=== PATIENT | female | born 2000 | race Caucasian/White ===

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

== ENCOUNTER 2020-02-23 06:29 | Outpatient (CLI) | payer BC ==
[2020-02-23 15:13] LABS: #Monocytes 0.4 10x3/uL (0.0-1.1); #Neutrophils 4.9 10x3/uL (1.5-8.4); %Basophils 0.3 % (0.0-2.0); %Eosinophils 0.3 % (0.0-6.0); %Lymphocytes 31.3 % (18.0-47.0); %Monocytes 4.7 % (0.0-10.0); %Neutrophils 63.3 % (40.0-75.0); Hemoglobin 15.6 g/dL (12.0-16.0); Mean Corpuscular HGB CONC 33.5 G/DL (32.0-36.0); Mean Corpuscular Hemoglobin 29.4 PG (27.0-33.0); Mean Corpuscular Volume 87.9 fl (80.0-100.0); Mean Platelet Volume 9.8 fl (7.4-10.4); Platelet Count 307 10x3/uL (130-400); RBC Distribution Width 11.9 % (11.5-14.5); White Blood Cell (WBC) Count 7.7 10x3/uL (4.5-11.0)
[2020-02-23 15:43] LABS: Anion Gap 15 mmol/L (10-20); BUN (Urea Nitrogen) 9 mg/dL (7.0-18.7); Calc. Creatinine Clearance 0 mL/min (70-130); Calcium 9.8 mg/dL (7.8-10.44); Carbon Dioxide 26 mmol/L (22-29); Chloride 104 mmol/L (98-107); Glucose 65 mg/dL (70-105); Potassium 4.3 mmol/L (3.5-5.1); Sodium 141 mmol/L (136-145)
[2020-02-24 02:10] LABS: SARS-CoV-2 MS2 Positive; SARS-CoV-2 N Gene Negative; SARS-CoV-2 S Gene Negative; SARS-CoV-2 by NAA Not Detected (NotDetected); SARS-CoV-2 orf1ab Negative
== END 2020-02-23 06:30 | disposition home or self-care (01) ==
LOC: LABBT 06:29
PROVIDERS: ATTEND Specialist
DX: Z01.812 Encounter for preprocedural laboratory examination (principal); Z20.828 Contact with and (suspected) exposure to other viral communicable diseases; L05.91 Pilonidal cyst without abscess
CPT/HCPCS: 80048; 85025; 87635; U0003

== ENCOUNTER 2020-02-26 11:58 | Day surgery (SDC) | payer BC ==
[2020-02-25 09:39] VITALS: BMI 23.1
[~2020-02-26 11:58] MED LIST changes: +Dexamethasone 20 MG/5 ML VIAL ONE; +Glycopyrrolate 0.2 MG/ML 5 ML SYRINGE ONE; -Iopamidol 370 76% 100 ML VIAL ONE; +Ketorolac Tromethamine 30 MG/ML VIAL ONE; +Ondansetron PF 4 MG/2 ML Vial ONE; +PROPOFOL 200 MG/20 ML VIAL ONE; +Rocuronium Bromide 10 MG/ML (10ML VIAL) ONE; +diphenhydrAMINE 50 MG/ML VIAL ONE
[2020-02-26] MEDS ORDERED: Acetaminophen 500 MG TAB ONE (12:33)
[2020-02-26] MEDS ORDERED: Ketorolac Tromethamine 30 MG/ML VIAL ONE (12:33)
[2020-02-26] MEDS ORDERED: Midazolam HCl 2 mg/2 ml Vial ONE ×2 (14:51→17:41)
[2020-02-26] MEDS ORDERED: Lidocaine 1% w/Epinephrine 1:100K 20 ML VIAL ONE (17:07)
[2020-02-26] MEDS ORDERED: Methylene Blue 50 MG/10 ML AMPUL ONE (17:07)
[2020-02-26] MEDS ORDERED: Bacitracin Zinc Ointment 30 gm TUBE ONE (17:07)
[2020-02-26] MEDS ORDERED: Bupivacaine 0.25% HCL 30 ML VIAL ONE (17:07)
[2020-02-26] MEDS ORDERED: Fentanyl 100 MCG/2 ML VIAL ONE ×2 (17:41→17:55)
[2020-02-26] MEDS ORDERED: Meperidine HCl/PF 25 MG/ML VIAL ONE (19:36)
--- NOTE | 2020-02-27 07:47 | OP ---
DATE OF PROCEDURE: 02/26/2020 PREOPERATIVE DIAGNOSIS: Pilonidal cyst. POSTOPERATIVE DIAGNOSIS: Pilonidal cyst. OPERATION PERFORMED: Pilonidal excision with layered closure. ANESTHESIA: General endotracheal. INDICATIONS FOR PROCEDURE: The patient is a 19-year-old female, who was in the process of transitioning to a male. She has been taking testosterone supplements. She has a large volume of hair on her buttocks and legs. She has developed symptomatic pilonidal disease with an obvious pilonidal pit and a cyst extending to the right of midline superiorly. DESCRIPTION OF OPERATION: Informed consent was obtained. The patient was taken to the operating room, where general endotracheal anesthesia was obtained with the patient in supine position. She was then rolled over to prone hilton-knife position. The area surrounding the pilonidal cyst was trimmed of hair, prepped with ChloraPrep, and draped in sterile fashion. I cannulated the pilonidal pit with an Angiocath and instilled a solution of methylene blue and peroxide. This led to marked swelling of the cyst to the right side of midline extending superiorly. We created an elliptical incision around the palpable cyst to include the pilonidal pit. Local anesthetic was infiltrated using a mixture of 1% lidocaine with epinephrine and 0.25% Marcaine. The cyst was excised intact and passed off the field. Meticulous hemostasis obtained with electrocautery. Flaps were raised laterally in each direction to elevate the skin and fatty tissue off the underlying muscular tissue. I then carefully closed the cyst in layers using 2-0 Vicryl to approximate the deep layers and close off the space and interrupted sutures of 2-0 nylon placed in vertical mattress fashion to approximate skin edges. I then placed a running suture of 4-0 Prolene along the skin edges to get better skin approximation. Antibiotic ointment and dry gauze dressing and mesh pants were placed. There were no complications. The patient tolerated the procedure well, was taken to recovery room in stable condition. Job ID: [id number]
== END 2020-02-26 20:06 | disposition home or self-care (01) ==
LOC: SDC 11:58
PROVIDERS: ATTEND Specialist
PROC: 0HB8XZZ Excision of Buttock Skin, External Approach (ICD-10-PCS; principal; 2020-02-26)
DX: L05.91 Pilonidal cyst without abscess (principal); F32.9 Major depressive disorder, single episode, unspecified; F41.9 Anxiety disorder, unspecified; D64.9 Anemia, unspecified
CPT/HCPCS: 88304; J0690; J1100; J1200; J1885; J2175; J2250; J2405; J2704; J3010; Q9968; S0020